=== PATIENT | male | born 1990 | race Caucasian/White ===

== ENCOUNTER 2020-12-04 11:29 | Outpatient (CLI) | payer OTHER, SELFPAY | END 2020-12-04 11:30 | disposition home or self-care (01) | LOC: ANHCOVIDVC 11:29 | PROVIDERS: PCP Family Medicine | DX: Z23 Encounter for immunization (principal) | CPT/HCPCS: 0001A; 91300 ==

== ENCOUNTER 2020-12-25 11:26 | Outpatient (CLI) | payer OTHER, SELFPAY | END 2020-12-25 11:27 | disposition home or self-care (01) | LOC: ANHCOVIDVC 11:26 | PROVIDERS: PCP Family Medicine | DX: Z23 Encounter for immunization (principal) | CPT/HCPCS: 0002A; 91300 ==

== ENCOUNTER 2024-03-29 11:51 | Outpatient (CLI) | payer BC, SELFPAY ==
--- NOTE | ~2024-03-29 | US_ITS ---
EXAMINATION: US soft tissue LE RT DATE: 03/29/2024 12:06 INDICATION: Cystic lesion of right posterior medial knee. TECHNIQUE: Multiple grayscale and Doppler ultrasound images of the right lower limb were obtained. COMPARISON: None FINDINGS: There is a subcutaneous patent varicose vein in right posterior medial knee in the patient' s area of concern. IMPRESSION: 1. Varicose vein in right posterior medial knee in the patient's area of concern. Reviewed, dictated and finalized at location E. IMPRESSION: 1. Varicose vein in right posterior medial knee in the patient's area of concer n.
== END 2024-03-29 11:52 ==
PROVIDERS: PCP Family Medicine; Visit Provider Physician Assistant Medical
DX: L98.9 Disorder of the skin and subcutaneous tissue, unspecified (principal); I83.91 Asymptomatic varicose veins of right lower extremity
CPT/HCPCS: 76882